=== PATIENT | male | born 1990 | race Hispanic/Latino ===

== ENCOUNTER 2022-07-17 16:57 | Emergency (ER) | payer SELFPAY ==
[2022-07-17 17:56] VITALS: BP 119/71
[2022-07-17 18:00] VITALS: BP 118/76
[2022-07-17 18:30] VITALS: BP 110/77
[2022-07-17 18:44] LABS: BASO% 0.6 % (0-3); EOS% 3.4 % (0-8); HEMOGLOBIN 19.3 g/dl (14.0-18.0); IMMATURE GRANULOCYTES 0.4 % (0.0-5.0); LYMPH% 20.6 % (15-41); MEAN CELL VOLUME 72.5 fL CALC (80.0-100.0); MEAN CORPUSCULAR HGB 23.3 pG CALC (26.0-32.0); MEAN CORPUSCULAR HGB CONC 32.2 g/dL CAL (32.0-36.0); MONO% 9.8 % (2-13); NEUT# 6.38 thou/uL (1.82-7.42); NEUT% 65.2 % (42-76); RED BLOOD COUNT 8.28 mill/uL (4.70-6.10); RED CELL DISTRI WIDTH 24.3 % (11.5-15.5)
[2022-07-17 18:47] LABS: ALBUMIN 4.2 g/dL (3.2-5.0); ALKALINE PHOSPHATASE 82 u/l (38-126); ANION GAP 12 (6-22 (CALC)); BILIRUBIN, TOTAL 0.7 mg/dL (0.0-1.4); BUN 21 mg/dL (9-20); BUN/CREATININE RATIO 26 (12-20 (CALC)); CARBON DIOXIDE 22 mmol/l (22-30); CHLORIDE 106 mmol/l (95-108); CREATININE 0.8 mg/dL (0.7-1.3); GFR FOR AFR.AMER. > 60 ML/MIN (>=60 (CALC)); GFR OTHER RACES > 60 ML/MIN (>=60 (CALC)); POTASSIUM 4.5 mmol/l (3.5-5.1); SGOT/AST 39 u/l (17-59); SODIUM 135 mmol/l (137-146); TOTAL PROTEIN 7.6 g/dL (6.3-8.2)
[2022-07-17 19:00] VITALS: BP 117/62
[2022-07-17 21:22] VITALS: BP 117/62
== END 2022-07-17 21:27 | disposition left against medical advice (07) | DRG 206 ==
LOC: ED 16:57
PROVIDERS: Family Medicine
DX: R09.02 Hypoxemia (principal); R04.0 Epistaxis; Z53.29 Procedure and treatment not carried out because of patient's decision for other reasons; Q67.6 Pectus excavatum
CPT/HCPCS: Q9967